=== PATIENT | male | born 1990 ===

== ENCOUNTER → 2019-01-21 | Outpatient (CLI) | payer OTHER ==
[~2019-01-21] MED LIST: ALBU90OI; CRUTCH4 USE; FLUSAL2505; HYDACE5 PO; LORPSEER24; MINO50 PO; MONT10T; PENVK500 PO
== END | disposition home or self-care (01) ==
LOC: LAB SHORT 08:42 → LAB EV 08:42
DX: J02.9 Acute pharyngitis, unspecified (principal)
CPT/HCPCS: 87070